=== PATIENT | female | born 1960 | race Caucasian/White ===

== ENCOUNTER 2020-05-29 04:34 | Day surgery (SDC) | payer OTHER ==
--- OUTSIDE RECORDS SUMMARY | 2020-05-02 10:29 | XMS ---
:1960 Author Organization [facility] Support Name Relationship Address Phone [employer] Unavailable [address] [place] [address] ARIES SAN MOTHER [address] [place] [address] [employer] Unavailable [address] [place] [address] ARIES LICONA [address] [place] [address] Re-disclosure Warning The records that you are about to access may contain information from federally- assisted alcohol or drug abuse programs. If such information is present, then the following federally mandated warning applies: This information has been disclosed to you from records protected by federal confidentiality rules (42 CFR part 2). The federal rules prohibit you from making any further disclosure of this information unless further disclosure is expressly permitted by the written consent of the person to whom it pertains or as otherwise permitted by 42 CFR part 2. A general authorization for the release of medical or other information is NOT sufficient for this purpose. The Federal rules restrict any use of the information to criminally investigate or prosecute any alcohol or drug abuse patient.The records that you are about to access may contain highly sensitive health information, the redisclosure of which is protected by Article 27-F of the [facility] Public Health law. If you continue you may haveaccess to information: Regarding HIV / AIDS; Provided by facilities licensed or operated by the [facility] Office of Mental Health; or Provided by the [facility] Office for People With Developmental Disabilities. If such information is present, then the following [facility] mandated warning applies: This information has been disclosed to you from confidential records which are protected by state law. State law prohibits you from making any further disclosure of this information without the specific written consent of the person to whom it pertains, or as otherwise permitted by law. Any unauthorized further disclosure in violation of state law may result in a fine or shelter sentence or both. A general authorization for the release of medical or other information is NOT sufficient authorization for further disclosure. Encounters Encounter Providers Location Date Indications Data Source(s ) Outpatient 08/11/2019 01:05:[address] [facility] PM EDT THYROID SONO Insurance Providers Payer name Policy type / Policy ID Covered Covered republican's Policy Plan Coverage type republican ID relationship to [place] Information [place] [employer] POS [id number] PT [id number] BC OUT OF [id number] SP [id number] STATE 22 BLUE CROSS [id number] PT [id number] Problems, Conditions, and Diagnoses Code Display Name Description Problem Type Effective Dates Data Source(s) E04.2 Nontoxic E04.2 Diagnosis 08/11/2019 [place] multinodular goiter 01:05:00 PM EDT Hospital
[2020-05-28 15:01] VITALS: BMI 25.2
--- OUTSIDE RECORDS SUMMARY | 2020-05-29 04:37 | XMS ---
:1960 Author Organization [facility] Support Name Relationship Address Phone [employer] Unavailable [address] [place] [address] ARIES SAN MOTHER [address] [place] [address] [email or web address] Unavailable [address] [place] [address] ARIES LICONA [address] [place] [address] Re-disclosure Warning The records that you are [...] is protected by Article 27-F of the [facility] Public Health law. If you continue you may haveaccess to information: Regarding HIV / AIDS; Provided by facilities licensed or operated by the [facility] Office of Mental Health; or Provided by the [facility] Office for People With Developmental Disabilities. If such information is present, then the following [facility] mandated warning applies: This information has [...] law may result in a fine or custodial sentence or both. A general authorization for the release of medical or other information is NOT sufficient authorization for further disclosure. Problems Concern Problem Problem Problem Problem Effective Problem Health Data Status Code Name Description Type Dates Status Status Sour ce(s) Description Description E04.2 Nontoxic Diagnosi 08/11/2019 [facility] 01:05:00 [place] [facility] PM EDT Hospital goiter Results ID Date Data Source [id number] 05/25/2020 10:25:00 AM EST [facility] Name Value Range Interpretation Description Data Sup porting Code Source(s) Document(s ) SARS [facility] coronavirus 2 RNA This lab was ordered by [facility] and reported by [facility]. Encounters Encounter Providers Location Date Problem Problem Problem Effective [facility] Data Code Name Description Dates Status Status Source (s) Description Description Outpatient 08/28 E04.2 Nontoxic 08/11/2019 [facility] 01:05:00 [place] 09:35 ular EDT Hospital :00 goiter AM EDT Insurance Providers Payer name Policy type / Policy ID Covered Covered republican's Policy Plan Coverage type republican ID relationship to [place] Information te[place]ada
[2020-05-29 09:45] VITALS: TEMP 97.8
[2020-05-29 10:36] VITALS: BP 117/62; PULSE 51
== END 2020-05-29 11:05 | disposition home or self-care (01) ==
LOC: JASU-ENDO 04:34
PROVIDERS: ATTEND Internal Medicine Gastroenterology
PROC: 0DJD8ZZ Inspection of Lower Intestinal Tract, Via Natural or Artificial Opening Endoscopic (ICD-10-PCS; principal; 2020-05-29 09:00)
DX: Z51.11 Encounter for antineoplastic chemotherapy (principal); Z86.010 Personal history of colon polyps; Z80.0 Family history of malignant neoplasm of digestive organs; K64.8 Other hemorrhoids; K63.89 Other specified diseases of intestine